=== PATIENT | female | born 1970 | race Caucasian/White ===

== ENCOUNTER 2020-09-12 13:07 | Outpatient (REF) | payer OTHER, SELFPAY | END 2020-09-12 13:08 | disposition home or self-care (01) | LOC: HO.BBR 13:07 | PROVIDERS: Visit Provider Internal Medicine Hematology & Oncology | DX: Z13.89 Encounter for screening for other disorder (principal) ==

== ENCOUNTER 2021-01-09 12:51 | Outpatient (REF) | payer OTHER, SELFPAY | END 2021-01-09 12:52 | disposition home or self-care (01) | LOC: HO.BBR 12:51 | PROVIDERS: PCP Family Medicine; Visit Provider Internal Medicine Hematology & Oncology | DX: Z13.89 Encounter for screening for other disorder (principal) ==

== ENCOUNTER 2023-02-13 08:31 | Outpatient (REF) | payer OTHER, SELFPAY ==
[2023-02-13 11:13] LABS: Ferritin 58 ng/mL (10-250)
== END 2023-02-13 08:32 | disposition home or self-care (01) ==
LOC: HO.BBR 08:31
PROVIDERS: Visit Provider Internal Medicine Hematology & Oncology
DX: E83.110 Hereditary hemochromatosis (principal)
CPT/HCPCS: 36415; 82728